=== PATIENT | male | born 1950 | race Caucasian/White ===

== ENCOUNTER → 2016-08-05 | Outpatient (CLI) | payer OTHER ==
[~2016-08-05] MED LIST: ACET500T76 PO; DOCU240C53 PO; FLUO20TA25 PO; HYDR-3241 PO; NAPR500T3 PO; SERT50TA PO; TRAZ50TA18 PO
== END | disposition home or self-care (01) ==
LOC: PETCFH 09:33
PROVIDERS: ATTEND Internal Medicine Pulmonary Disease
DX: R91.1 Solitary pulmonary nodule (principal)
CPT/HCPCS: 78815; A9552

== ENCOUNTER → 2018-01-12 | Outpatient (CLI) | payer OTHER ==
[~2018-01-12] MED LIST changes: +ACET500T71 PO; -ACET500T76 PO; +NAPR-685 PO; -NAPR500T3 PO; +TRAZ-136 PO; -TRAZ50TA18 PO
== END | disposition home or self-care (01) ==
LOC: PETCFH 11:33
PROVIDERS: ATTEND Nurse Practitioner
DX: R91.1 Solitary pulmonary nodule (principal)
CPT/HCPCS: 78815; A9552